=== PATIENT | female | born 1945 | race Caucasian/White ===

== ENCOUNTER 2021-09-01 05:51 | Day surgery (SDC) | payer MEDICARE ==
[2021-08-19 17:12] LABS: BASOPHILS # (AUTO) 0.1 X10'3 (0-0.2); BASOPHILS % (AUTO) 0.7 % (0-1); EOSINOPHILS # (AUTO) 0.1 X10'3 (0-0.9); EOSINOPHILS % (AUTO) 1.5 % (0-6); LYMPHOCYTES # (AUTO) 1.5 X10'3 (1.1-4.8); LYMPHOCYTES % (AUTO) 19.6 % (21-51); MEAN CORPUSCULAR HGB CONC 34.1 g/dL (33.0-36.5); MEAN PLATELET VOLUME 7.4 FL (7.4-10.4); MONOCYTES # (AUTO) 0.5 X10'3 (0-0.9); MONOCYTES % (AUTO) 7.1 % (2-12); NEUTROPHILS # (AUTO) 5.3 X10'3 (1.8-7.7); NEUTROPHILS % (AUTO) 71.1 % (42-75); PRE OP HEMATOCRIT 42.6 % (35.0-45.0); PRE OP HEMOGLOBIN 14.5 g/dL (12.0-16.0); PRE OP PLATELET COUNT 283 X10'3 (140-440); RED BLOOD COUNT 4.53 X10'6 (4.20-5.60); RED CELL DISTRIBUTION WIDTH 13.4 % (11.5-14.5)
[2021-08-19 17:13] LABS: PRE OP INR 1.1 INR; PRE OP PROTIME 11.7 SECONDS (9.0-12.0)
[2021-08-19 17:16] LABS: ALBUMIN 4.1 G/DL (3.4-5.0); ALBUMIN/GLOBULIN RATIO 1.2 (1.1-1.5); ALKALINE PHOSPHATASE 83 IU/L (46-116); BLOOD UREA NITROGEN 15 MG/DL (7-18); BUN/CREATININE RATIO 21.4 (6.6-38.0); CALCIUM 9.2 MG/DL (8.5-10.1); CHLORIDE 105 MMOL/L (99-107); PRE OP ALT 26 U/L (30-65); PRE OP ANION GAP 7 (8-16); PRE OP AST 13 U/L (10-37); PRE OP BILIRUB, TOTAL 0.3 MG/DL (0.0-1.0); PRE OP GLUCOSE 105 MG/DL (70-104); PRE OP POTASSIUM 4.3 MMOL/L (3.4-5.1); PRE OP SODIUM 142 MMOL/L (135-145); TOTAL CARBON DIOXIDE 29.8 MMOL/L (24-32); TOTAL PROTEIN 7.4 G/DL (6.4-8.2); eGFR 81 ML/MIN
[~2021-09-01] VITALS: Ht 162.6 cm; Wt 102.1 kg
[2021-09-01] VITALS (27 sets, daily range): BP systolic 127–201; BP diastolic 68–105
[~2021-09-01 05:51] MED LIST: acetaminophen 325mg tablet PO ONE; cefazolin/dext.iso 2gm/50ml IV ONE; celeCOXIB 100mg capsule PO ONE; famotidine 20mg tablet PO ONE; metoclopramide 5 mg/ml inj IV ONE; oxyCODONE SR 10mg (sust. release) tab -2 tabs (20mg) PO ONE; ringers solution, lacted 1,000 ML IV SCH; tranexamic acid inj. 1,000 MG in 0.7% saline 100 ML PMX IV ONE; vancomycin 1,500 MG in NS 300ml IV soln IV ONE
[2021-09-01] MEDS ORDERED: tranexamic acid inj. 1,000 MG in 0.7% saline 100 ML PMX IV ONE (06:00)
[2021-09-01] MEDS ORDERED: metoclopramide 5 mg/ml inj IV ONE (06:00)
[2021-09-01] MEDS ORDERED: gabapentin 300mg capsule PO ONE (06:00)
[2021-09-01] MEDS ORDERED: diphenhydrAMINE 25mg capsule PO PRN ×2 (06:15)
[2021-09-01] MEDS ORDERED: HYDROmorphone inj. 0.5 MG/0.5 ML DISP.SYRIN IV PRN (06:15)
[2021-09-01] MEDS ORDERED: bisacodyl 10mg suppository rectal RC PRN (06:15)
[2021-09-01] MEDS ORDERED: magnesium hydroxide 30ml (MOM) UD suspension PO PRN (06:15)
[2021-09-01] MEDS: potassium cl 20mEq in 1/2 NS 1,000 ML IV SCH ×2 (06:15→22:15)
[2021-09-01] MEDS ORDERED: acetaminophen 325mg tablet PO PRN (06:15)
[2021-09-01] MEDS ORDERED: HYDROmorphone 1 mg/ml syringe IV PRN (06:15)
[2021-09-01] MEDS ORDERED: oxyCODONE/APAP 10/325mg tablet PO PRN ×2 (06:15)
[2021-09-01] MEDS ORDERED: ondansetron/PF 4mg/2ml inj IV PRN ×2 (06:15→08:20)
[2021-09-01] MEDS: ringers solution, lacted 1,000 ML IV SCH ×2 (07:27→17:21)
[2021-09-01] MEDS ORDERED: ketorolac trometh. 30mg/ml inj. ONE (07:37)
[2021-09-01] MEDS ORDERED: ROPIVAcaine 0.5% (5mg/ml) 30ml vial ONE ×2 (07:37→08:45)
[2021-09-01] MEDS ORDERED: cloNIDine hcl/PF 100mcg/ml inj ONE (07:39)
[2021-09-01] MEDS ORDERED: vancomycin 1,000mg inj ONE (07:39)
[2021-09-01] MEDS ORDERED: epiNEPHrine 1 mg/ml inj ONE (07:39)
[2021-09-01] MEDS ORDERED: vancomycin/NS 1 GM ADD-VANTAGE 250 ML IV SCH (08:00)
[2021-09-01] MEDS: multivitamins, therapeutics tablet PO SCH (08:00)
[2021-09-01] MEDS ORDERED: gabapentin 300mg capsule PO SCH (08:00)
[2021-09-01] MEDS ORDERED: MIDAZolam 1 MG/ML 5ML VIAL ONE (08:09)
[2021-09-01] MEDS ORDERED: fentaNYL/PF 50MCG/1 ML 2ML syringe ONE ×2 (08:09→09:13)
[2021-09-01] MEDS ORDERED: ROPIVAcaine 0.2%/PF PUMP/bolus 545 ML ADDCANAL SCH (08:20)
[2021-09-01] MEDS ORDERED: morphine 2 MG/ML inj. syringe IV PRN (08:20)
[2021-09-01] MEDS ORDERED: HYDROmorphone/PF 0.2 MG/ML SYRINGE IV PRN ×2 (08:20)
[2021-09-01] MEDS ORDERED: ROPIVAcaine 0.2% (10 MG/5 ML) BOLUS INJECTION ADDCANAL PRN (08:20)
[2021-09-01] MEDS ORDERED: ringers solution, lacted 1,000 ML IV SCH (08:20)
[2021-09-01] MEDS ORDERED: diphenhydrAMINE 50 mg/ml inj ONE (09:36)
[2021-09-01] MEDS ORDERED: propofol inj 20 ML IV ONE (09:36)
[2021-09-01] MEDS ORDERED: LIDOcaine 1%/PF 5ML 10 MG/ML VIAL ONE (09:36)
--- NOTE | 2021-09-01 10:24 | NUR ---
Received from OR via , accompanied by Anesthesiologist DR CASTILLO and report given by Anesthesiolgist. PT PRSENTS WITH 20G LEFT HAND, DRESSING ON RIGHT KNEE CLEAN DRY AMD INTACT,POWDER PACK, ADIEL DRESSING AND ON-Q. VSS. Addendum: 09/01/21 at 1042 by Ade Gomez RN, RN Amended: Links added.
--- NOTE | 2021-09-01 12:17 | NUR ---
PT SITTING UP IN BED EATING CRACKERS PENUT BUTTER AND JUICE. PRUDENCE DIET LUNCH ORDERED AT 12:02 Addendum: 09/01/21 at 1218 by dAe Gomez RN, RN Amended: Links added.
--- NOTE | 2021-09-01 13:24 | NUR ---
Report called to receiving nurse TARA AKHTAR. Transferred via [facility] BED BY [facility] TO ROOM 348B. 1 PT Belongings BAG SENT TO PT ROOM 348B Special Issues communicated to receiving nurse. Addendum: 09/01/21 at 1336 by Ade Gomez RN RN Amended: Links added.
--- NOTE | 2021-09-01 13:30 | NUR ---
Patient in room [facility] 348B. I have received report from HERMILO TINAJERO FROM [facility] and had the opportunity to ask questions and assume patient care.
[2021-09-01] MEDS ORDERED: tranexamic acid 1gm/0.7% sal. 100 ML IV ONE (14:00)
[2021-09-01] MEDS ORDERED: NO HOME MEDS (14:27)
[2021-09-01] MEDS ORDERED: cefazolin/dext.iso 2gm/100ml 100 ML IV SCH (16:00)
[2021-09-01] MEDS ORDERED: hydrALAZINE 20mg/ml inj. IV ONE (16:55)
[2021-09-01] MEDS: ceFAZolin/D5W- 1GM premix 50 ML IV SCH ×3 (19:51→20:16)
[2021-09-01] MEDS: ascorbic acid 500mg tablet PO SCH (20:00)
[2021-09-01] MEDS ORDERED: VANCOMYCIN 1,500MG inj. 1,500 MG in normal saline 500ml IV soln 500 ML IV SCH (20:00)
[2021-09-01] MEDS ORDERED: sennosides 8.6mg tablet PO SCH (21:00)
--- NOTE | 2021-09-01 22:32 | NUR ---
2231 ;Patient refusing IV ABX and IV fluids.Pt has no IV access at the moment and is refusing to have one inserted.Pt's surgeon Dr. Yeung notified and will be seeing the patient in the morning tomorrow 09/02/21 Addendum: 09/01/21 at 2241 by Diamond Artis RN correction Pt's surgeon is not Dr Yeung.
[2021-09-01] MEDS: acetaminophen 325mg tablet PO PRN (23:45)
[2021-09-02] VITALS: BP_SYST 162; BP_SYST 183; BP_SYST 200; BP_DIAS 70; BP_DIAS 75; BP_DIAS 87
[2021-09-02 02:52] VITALS: BP 172/77
[2021-09-02 04:00] VITALS: BP 172/77
[2021-09-02] MEDS: acetaminophen 325mg tablet PO PRN (05:01)
[2021-09-02 05:49] VITALS: BP 186/85
[2021-09-02] MEDS: potassium cl 20mEq in 1/2 NS 1,000 ML IV SCH (06:15)
--- NOTE | 2021-09-02 06:29 | NUR ---
Report given to Sherlyn AKHTAR
[2021-09-02 06:57] LABS: BASOPHILS % (AUTO) 0.5 % (0-1); EOSINOPHILS % (AUTO) 0.2 % (0-6); HEMATOCRIT 39.8 % (35.0-45.0); HEMOGLOBIN 13.9 g/dl (12.0-16.0); LYMPHOCYTES # (AUTO) 0.9 X10'3 (1.1-4.8); LYMPHOCYTES % (AUTO) 10.6 % (21-51); MEAN CORPUSCULAR HEMOGLOBIN 32.4 PG (27.0-31.0); MEAN CORPUSCULAR VOLUME 92.6 FL (78-98); MEAN PLATELET VOLUME 7.6 FL (7.4-10.4); MONOCYTES # (AUTO) 0.6 X10'3 (0-0.9); MONOCYTES % (AUTO) 6.6 % (2-12); NEUTROPHILS # (AUTO) 7.3 X10'3 (1.8-7.7); NEUTROPHILS % (AUTO) 82.1 % (42-75); PLATELET COUNT 272 X10'3 (140-440); RED BLOOD COUNT 4.29 X10'6 (4.20-5.60); RED CELL DISTRIBUTION WIDTH 13.3 % (11.5-14.5)
[2021-09-02 07:14] VITALS: BP 197/87
[2021-09-02 07:30] VITALS: BP 152/78
[2021-09-02] MEDS: multivitamins, therapeutics tablet PO SCH (07:30)
[2021-09-02] MEDS: ascorbic acid 500mg tablet PO SCH (07:30)
[2021-09-02 07:59] LABS: ANION GAP 7 (8-16); CHLORIDE 104 MMOL/L (99-107); POTASSIUM 3.9 MMOL/L (3.5-5.1); SODIUM 138 MMOL/L (135-145); TOTAL CARBON DIOXIDE 26.6 MMOL/L (24-32)
[2021-09-02] MEDS ORDERED: aspirin 325mg tablet PO SCH (08:30)
--- NOTE | 2021-09-02 10:14 | NUR ---
PT HAS ELEVATED BP. STATES THAT SHE DOES NOT HAVE HTN, THE HOSPITAL IS GIVING HER ANXIETY AND SHE IS PAINFUL. HOWEVER SHE IS REFUSING PAIN MEDS AND IV. PER NOC SHIFT DR NEWBY WAS NOTIFIED RE BP. PT STATES THAT SHE WANTS TO LEAVE.
--- NOTE | 2021-09-02 11:07 | NUR ---
PT DISCHARGED IN STABLE CONDITION. LEFT FACILITY IN PRIVATE VEHICLE WITH . NO IV TO DC. ALL BELONGINGS IN HAND, FOLLOW UP INSTRUCTIONS GIVEN. Addendum: 09/02/21 at 1109 by Jammie Downey RN Amended: Links added.
[2021-09-02] MEDS ORDERED: celeCOXIB 100mg capsule PO SCH (20:00)
== END 2021-09-02 10:37 | disposition home or self-care (01) ==
LOC: PAS 05:51 → SUR 3N 14:14 → PAS 09-02 10:37
PROVIDERS: ATTEND Orthopaedic Surgery
DX: M17.11 Unilateral primary osteoarthritis, right knee (principal); G89.18 Other acute postprocedural pain; G47.30 Sleep apnea, unspecified; J44.9 Chronic obstructive pulmonary disease, unspecified; F41.9 Anxiety disorder, unspecified; E03.9 Hypothyroidism, unspecified; Z88.8 Allergy status to other drugs, medicaments and biological substances; Z79.01 Long term (current) use of anticoagulants; Z20.822 Contact with and (suspected) exposure to COVID-19; Z79.899 Other long term (current) drug therapy
CPT/HCPCS: 27447; 36415; 64448; 71046; 73560; 76942; 80051; 80053; 82948; 85025; 85610; 85730; 86885; 86900; 86901; 93005; 97110; 97116; 97161; 97530; C1713; C1776; J0171; J0360; J0690; J0735; J1200; J1885; J2250; J2704; J2765; J2795; J3010; J3370; J3490; J7030; J7040; J7120; Q0163; U0003; U0005; Z7506; Z7508; Z7512; A4215; A7000; G0378; J1170